=== PATIENT | female | born 1935 | race Hispanic/Latino ===

== ENCOUNTER → 2018-06-03 | Outpatient (CLI) | payer MEDICARE | END | disposition home or self-care (01) | LOC: RAH 07:37 | PROVIDERS: ATTEND Internal Medicine Nephrology | DX: R10.9 Unspecified abdominal pain (principal); R10.2 Pelvic and perineal pain | CPT/HCPCS: 74176 ==

== ENCOUNTER 2018-06-15 09:45 | Emergency (ER) | payer MEDICARE ==
[2018-06-15] MEDS ORDERED: SODIUM CHLORIDE 0.9% 1000ML 1,000 ML IV ONE (10:47)
[2018-06-15] MEDS ORDERED: ONDANSETRON HCL 4 MG/2 ML VIAL ONE (10:47)
[2018-06-15 10:58] LABS: BASOPHILS % (AUTO) 0.9 % (0.0-5.0); EOSINOPHILS % (AUTO) 3.6 % (0.0-8.0); HEMATOCRIT 32.7 % (36-48); LYMPHOCYTES % (AUTO) 19.9 % (21.0-51.0); MEAN CORPUSCULAR HEMOGLOBIN 26.3 pg (27.0-33.0); MEAN CORPUSCULAR HGB CONC 33.4 g/dL (32.0-36.0); MEAN CORPUSCULAR VOLUME 78.9 fL (79-99); MONOCYTES % (AUTO) 6.9 % (3.0-13.0); NEUTROPHILS % (AUTO) 68.7 % (40.0-77.0); PLATELET COUNT (AUTO) 233 K/uL (130-400); RED BLOOD CELL COUNT(AUTO) 4.14 MIL/uL (4.00-5.50); RED CELL DISTRIBUTION WIDTH 13.3 % (11.0-15.5); WHITE BLOOD COUNT (AUTO) 4.8 K/uL (4.8-10.8)
[2018-06-15 11:00] LABS: CREATININE 1.1 mg/dL (0.5-1.5); POTASSIUM 4.6 mmol/L (3.5-5.1)
[2018-06-15 11:06] LABS: ALBUMIN 3.6 g/dL (3.5-5.0); BILIRUBIN,DIRECT 0.1 mg/dL (0.0-0.3); BILIRUBIN,TOTAL 0.3 mg/dL (0.2-1.0); TOTAL PROTEIN, SERUM 7.6 g/dL (6.0-8.3)
[2018-06-15 11:28] LABS: B-TYPE NATRIURETIC PEPTIDE 103 pg/mL (0-100)
[2018-06-15 11:31] LABS: INR 1.09 (0.85-1.15); PARTIAL THROMBOPLASTIN TIME 24.5 SEC (26.3-35.5); PROTHROMBIN TIME 11.4 SEC (9.6-11.6)
[2018-06-15] MEDS ORDERED: METOPROLOL TARTRATE 50 MG TAB ONE (12:40)
== END 2018-06-15 14:13 | disposition home or self-care (01) ==
LOC: EDH 09:45
DX: E86.0 Dehydration (principal); R55 Syncope and collapse; I10 Essential (primary) hypertension; Z88.6 Allergy status to analgesic agent
CPT/HCPCS: 36415; 70450; 80048; 80076; 82550; 83880; 84484; 85025; 85610; 85730; 93005; 96361; 96374; 99284; J2405; J7030

== ENCOUNTER 2019-06-07 21:37 | Emergency (ER) | payer MEDICARE ==
[2019-06-07 21:59] LABS: BASOPHILS % (AUTO) 1.2 % (0.0-5.0); EOSINOPHILS % (AUTO) 4.4 % (0.0-8.0); HEMATOCRIT 33.5 % (36-48); LYMPHOCYTES % (AUTO) 41.9 % (21.0-51.0); MEAN CORPUSCULAR HEMOGLOBIN 25.5 pg (27.0-33.0); MEAN CORPUSCULAR HGB CONC 31.9 g/dL (32.0-36.0); MEAN CORPUSCULAR VOLUME 79.8 fL (79-99); MONOCYTES % (AUTO) 10.4 % (3.0-13.0); NEUTROPHILS % (AUTO) 41.6 % (40.0-77.0); PLATELET COUNT (AUTO) 216 K/uL (130-400); WHITE BLOOD COUNT (AUTO) 4.3 K/uL (4.8-10.8)
[2019-06-07 22:18] LABS: CREATININE 1.3 mg/dL (0.5-1.5); POTASSIUM 3.6 mmol/L (3.5-5.1)
[2019-06-07 22:22] LABS: ALBUMIN 4.1 g/dL (3.5-5.0); BILIRUBIN,TOTAL 0.3 mg/dL (0.2-1.0); TOTAL PROTEIN, SERUM 7.7 g/dL (6.0-8.3)
[2019-06-07 22:50] LABS: APPEARANCE,URINE SLIGHTLY CLOUDY (CLEAR); BILIRUBIN,URINE NEGATIVE (NEGATIVE); COLOR,URINE YELLOW (YELLOW); GLUCOSE, URINE (UA) NEGATIVE (NEGATIVE); KETONES,URINE NEGATIVE (NEGATIVE); OCCULT BLOOD,URINE LARGE (NEGATIVE); PROTEIN,URINE 100 mg/dL (NEGATIVE); UROBILINOGEN,URINE 0.2 mg/dL (0.2-1.0)
[2019-06-07 22:51] LABS: LEUKOCYTE ESTERASE ,URINE TRACE (NEGATIVE); NITRATE,URINE NEGATIVE (NEGATIVE)
[2019-06-07 22:52] LABS: BACTERIA,URINE None Seen /HPF (None Seen); RBC,URINE 26-50 /HPF (0-1)
[2019-06-07 22:53] LABS: SQUAMOUS EPITHELIAL CELL,UR Rare /HPF (0-2)
[2019-06-07] MEDS ORDERED: KETOROLAC TROMETHAMINE 15MG/ML ONE (23:31)
[2019-06-07] MEDS ORDERED: TAMSULOSIN HCL 0.4 MG CAP.ER.24H ONE (23:31)
[2019-06-07] MEDS ORDERED: SODIUM CHLORIDE 0.9% 1000ML 1,000 ML IV ONE (23:32)
== END 2019-06-08 02:55 | disposition home or self-care (01) ==
LOC: EDH 21:37
DX: N20.1 Calculus of ureter (principal); I10 Essential (primary) hypertension; R11.2 Nausea with vomiting, unspecified; Z88.5 Allergy status to narcotic agent; Z90.49 Acquired absence of other specified parts of digestive tract; Z90.710 Acquired absence of both cervix and uterus
CPT/HCPCS: 36415; 71045; 74176; 80053; 81001; 82150; 82550; 83605; 83690; 84484; 85025; 87040 ×2; 93005; 96361; 96374; 99285; J1885; J7030

== ENCOUNTER 2019-11-19 09:45 | Emergency (ER) | payer MEDICARE ==
[2019-11-19] MEDS ORDERED: TETANUS/DIPHTHERIA TOXOID [ADULT] 0.5 ML VIAL IM ONE (11:00)
== END 2019-11-19 11:27 | disposition home or self-care (01) ==
LOC: EDH 09:45
DX: S00.03XA Contusion of scalp, initial encounter (principal); S00.12XA Contusion of left eyelid and periocular area, initial encounter; I10 Essential (primary) hypertension; Z88.6 Allergy status to analgesic agent; Z90.49 Acquired absence of other specified parts of digestive tract; Z90.710 Acquired absence of both cervix and uterus; W06.XXXA Fall from bed, initial encounter; Y93.89 Activity, other specified; Y92.89 Other specified places as the place of occurrence of the external cause; Y99.8 Other external cause status

== ENCOUNTER 2020-05-18 01:49 | Observation (INO) | payer MEDICARE ==
[~2020-05-18] VITALS: Ht 157.5 cm; Wt 68.9 kg
[2020-05-18 02:19] LABS: BASOPHILS % (AUTO) 0.7 % (0.0-5.0); EOSINOPHILS % (AUTO) 3.8 % (0.0-8.0); LYMPHOCYTES % (AUTO) 40.2 % (21.0-51.0); MEAN CORPUSCULAR HEMOGLOBIN 25.9 pg (27.0-33.0); MEAN CORPUSCULAR HGB CONC 31.5 g/dL (32.0-36.0); MEAN CORPUSCULAR VOLUME 82.3 fL (79-99); MONOCYTES % (AUTO) 11.3 % (3.0-13.0); NEUTROPHILS % (AUTO) 43.6 % (40.0-77.0); PLATELET COUNT (AUTO) 205 K/uL (130-400); RED BLOOD CELL COUNT(AUTO) 4.13 MIL/uL (4.00-5.50); RED CELL DISTRIBUTION WIDTH 13.1 % (11.0-15.5); WHITE BLOOD COUNT (AUTO) 4.5 K/uL (4.8-10.8)
[2020-05-18 02:29] LABS: CREATININE 1.5 mg/dL (0.5-1.5)
[2020-05-18] MEDS ORDERED: MORPHINE SULFATE 2 MG/ML 1ML SYG ONE ×2 (02:30→03:48)
[2020-05-18] MEDS ORDERED: ONDANSETRON HCL 4 MG/2 ML VIAL ONE ×3 (02:30→09:38)
[2020-05-18 02:34] LABS: ALBUMIN 3.6 g/dL (3.5-5.0); BILIRUBIN,TOTAL 0.3 mg/dL (0.2-1.0); TOTAL PROTEIN, SERUM 7.1 g/dL (6.0-8.3)
[2020-05-18 03:38] LABS: APPEARANCE,URINE Clear (CLEAR); BILIRUBIN,URINE Negative (NEGATIVE); COLOR,URINE Yellow (YELLOW); GLUCOSE, URINE (UA) Negative (NEGATIVE); KETONES,URINE Negative (NEGATIVE); LEUKOCYTE ESTERASE ,URINE Negative (NEGATIVE); NITRATE,URINE Negative (NEGATIVE); OCCULT BLOOD,URINE Moderate (NEGATIVE); PROTEIN,URINE POS 2+ mg/dL (NEGATIVE); UROBILINOGEN,URINE 0.2 mg/dL (0.2-1.0)
[2020-05-18 03:51] LABS: BACTERIA,URINE None Seen /HPF (None Seen); RBC,URINE 26-50 /HPF (0-1); SQUAMOUS EPITHELIAL CELL,UR Rare /HPF (0-2); WBC,URINE None Seen /HPF (0-1)
[2020-05-18] MEDS ORDERED: CEFTRIAXONE SODIUM 1 GM ONE (04:54)
[2020-05-18] MEDS ORDERED: MORPHINE SULFATE 4 MG/1ML SYG ONE (05:45)
[2020-05-18] MEDS: CEFTRIAXONE SODIUM 1 GM IV SCH (06:30)
[2020-05-18] MEDS ORDERED: DiphenhydrAMINE HCL 50 MG/ML VIAL IV PRN (06:30)
[2020-05-18] MEDS ORDERED: LACTULOSE 20 GM/30 ML UDCUP PO PRN (06:30)
[2020-05-18] MEDS ORDERED: MAG HYDROX/AL HYDROX/SIMETH ES 30 ML SUSP UDCUP PO PRN (06:30)
[2020-05-18] MEDS ORDERED: ONDANSETRON HCL 4 MG/2 ML VIAL IV PRN (06:30)
[2020-05-18] MEDS ORDERED: MORPHINE SULFATE 2 MG/ML 1ML SYG IV PRN (06:30)
[2020-05-18] MEDS ORDERED: ACETAMINOPHEN 325 MG TAB PO PRN (06:30)
[2020-05-18] MEDS ORDERED: METOPROLOL TARTRATE 50 MG TAB ONE (06:40)
[2020-05-18 07:12] LABS: HEMOGLOBIN A1C 6.3 % (4.0-6.0)
[2020-05-18] MEDS ORDERED: TAMSULOSIN HCL 0.4 MG CAP.ER.24H ONE (07:43)
[2020-05-18] MEDS ORDERED: FAMOTIDINE 20MG TAB 20 MG TAB ONE (07:43)
[2020-05-18] MEDS: FAMOTIDINE 20MG TAB 20 MG TAB PO SCH (09:00)
[2020-05-18] MEDS: TAMSULOSIN HCL 0.4 MG CAP.ER.24H PO SCH (09:00)
[2020-05-18] MEDS ORDERED: KETOROLAC TROMETHAMINE 30MG/ML ONE (09:39)
[2020-05-18] MEDS ORDERED: METOPROLOL TARTRATE 1 MG/ML 5ML VIAL IV ONE (09:51)
[2020-05-18 15:15] VITALS: BP 136/53
--- NOTE | 2020-05-18 15:20 | NUR ---
HX OF IBS Addendum: 05/18/20 at 1553 by ESTEPHANIA REYNOSO RN RN Amended: Links added.
[2020-05-18] MEDS ORDERED: METOPROLOL TARTRATE 1 MG/ML 5ML VIAL IV PRN (17:00)
[2020-05-18 19:38] VITALS: BP 127/59
[2020-05-18] MEDS: SODIUM CHLORIDE 0.9% 1000ML 1,000 ML IV SCH (19:50)
[2020-05-19] VITALS (7 sets, daily range): BP systolic 128–170; BP diastolic 64–91
[2020-05-19] MEDS: CEFTRIAXONE SODIUM 1 GM IV SCH (05:21)
[2020-05-19 05:56] LABS: BASOPHILS % (AUTO) 0.5 % (0.0-5.0); EOSINOPHILS % (AUTO) 1.6 % (0.0-8.0); HEMATOCRIT 29.6 % (36-48); LYMPHOCYTES % (AUTO) 23.2 % (21.0-51.0); MEAN CORPUSCULAR HEMOGLOBIN 26.1 pg (27.0-33.0); MEAN CORPUSCULAR HGB CONC 31.4 g/dL (32.0-36.0); MEAN CORPUSCULAR VOLUME 82.9 fL (79-99); MONOCYTES % (AUTO) 10.4 % (3.0-13.0); PLATELET COUNT (AUTO) 175 K/uL (130-400); RED BLOOD CELL COUNT(AUTO) 3.57 MIL/uL (4.00-5.50); RED CELL DISTRIBUTION WIDTH 13.2 % (11.0-15.5); WHITE BLOOD COUNT (AUTO) 5.8 K/uL (4.8-10.8)
[2020-05-19 06:19] LABS: BILIRUBIN,TOTAL 0.3 mg/dL (0.2-1.0); CREATININE 2.8 mg/dL (0.5-1.5); POTASSIUM 4.4 mmol/L (3.5-5.1); TOTAL PROTEIN, SERUM 6.3 g/dL (6.0-8.3)
[2020-05-19] MEDS: TAMSULOSIN HCL 0.4 MG CAP.ER.24H PO SCH (09:00)
[2020-05-19] MEDS: FAMOTIDINE 20MG TAB 20 MG TAB PO SCH (09:00)
[2020-05-19] MEDS: SODIUM CHLORIDE 0.9% 1000ML 1,000 ML IV SCH (09:50)
--- NOTE | 2020-05-19 10:30 | NUR ---
ET WITH PATIENT AT BEDSIDE FOR DC GAIL. PATIENTS STATES SHE IS ACTIVE AND INDEPENDNET, SUES NO DME, AND HAS NO HOME SERIVCES LIVES WITH SPOUSE LIZBETH, WHO WILL PORVIDE TRANSPORT, DCP HOME. Addendum: 05/19/20 at 1738 by AZALEA LAWRENCE RN CM Amended: Links added.
--- NOTE | 2020-05-19 13:34 | NUR ---
DR ALBARRAN VISITED WITH PATIENT. POC DISCUSSED. BMP AND CT ABD/PELVIS ORDERED STAT. WILL REPORT BACK RESULTS TO DR ALBARRAN. WILL CONTINUE TO MONITOR CLOSELY.
[2020-05-19 14:04] LABS: CREATININE 2.3 mg/dL (0.5-1.5); POTASSIUM 4.3 mmol/L (3.5-5.1)
--- NOTE | 2020-05-19 17:45 | NUR ---
DR PRICE CALLED BACK ORDERED TO STOP IVF DUE TO BP INCREASE. EXPLAINED THIS TO THE PATIENT, BUT SHE SEEMS FORGETFUL. NEED FOR CONSTANT REINFORCEMENT OF EDUCATION GIVEN.
[2020-05-19] MEDS ORDERED: METOPROLOL TARTRATE 50 MG TAB PO STA (19:29)
[2020-05-19] MEDS ORDERED: LOSARTAN 50 MG TABLET PO STA (19:29)
[2020-05-20 00:21] VITALS: BP 158/66
[2020-05-20 03:56] VITALS: BP 158/61
[2020-05-20 04:14] LABS: APPEARANCE,URINE Clear (CLEAR); BILIRUBIN,URINE Negative (NEGATIVE); COLOR,URINE Yellow (YELLOW); GLUCOSE, URINE (UA) Negative (NEGATIVE); KETONES,URINE Negative (NEGATIVE); LEUKOCYTE ESTERASE ,URINE Negative (NEGATIVE); NITRATE,URINE Negative (NEGATIVE); OCCULT BLOOD,URINE Trace (NEGATIVE); PROTEIN,URINE Negative (NEGATIVE); UROBILINOGEN,URINE 0.2 mg/dL (0.2-1.0)
[2020-05-20 04:25] LABS: RBC,URINE 0-1 /HPF (0-1); WBC,URINE None Seen /HPF (0-1)
[2020-05-20 04:26] LABS: BACTERIA,URINE None Seen /HPF (None Seen); SQUAMOUS EPITHELIAL CELL,UR Rare /HPF (0-2)
[2020-05-20] MEDS: CEFTRIAXONE SODIUM 1 GM IV SCH (05:21)
[2020-05-20 05:49] LABS: BASOPHILS % (AUTO) 1.4 % (0.0-5.0); EOSINOPHILS % (AUTO) 4.3 % (0.0-8.0); HEMATOCRIT 31.2 % (36-48); LYMPHOCYTES % (AUTO) 36.2 % (21.0-51.0); MEAN CORPUSCULAR HEMOGLOBIN 26.2 pg (27.0-33.0); MEAN CORPUSCULAR HGB CONC 32.4 g/dL (32.0-36.0); MONOCYTES % (AUTO) 9.7 % (3.0-13.0); NEUTROPHILS % (AUTO) 47.9 % (40.0-77.0); PLATELET COUNT (AUTO) 201 K/uL (130-400); RED BLOOD CELL COUNT(AUTO) 3.85 MIL/uL (4.00-5.50); RED CELL DISTRIBUTION WIDTH 12.8 % (11.0-15.5); WHITE BLOOD COUNT (AUTO) 4.2 K/uL (4.8-10.8)
[2020-05-20 06:39] LABS: ALBUMIN 3.1 g/dL (3.5-5.0); BILIRUBIN,TOTAL 0.3 mg/dL (0.2-1.0); CREATININE 1.5 mg/dL (0.5-1.5); MAGNESIUM 1.4 mg/dL (1.80-2.40); PHOSPHORUS 3.6 mg/dL (2.5-4.9); POTASSIUM 4.2 mmol/L (3.5-5.1); TOTAL PROTEIN, SERUM 6.7 g/dL (6.0-8.3); URIC ACID 8.2 mg/dL (2.6-7.2)
[2020-05-20 07:57] VITALS: BP 160/57
[2020-05-20] MEDS ORDERED: METOPROLOL TARTRATE 50 MG TAB PO SCH (09:00)
[2020-05-20] MEDS ORDERED: Vitamin B Complex/Vit C/Folic Acid PO SCH (09:00)
[2020-05-20] MEDS ORDERED: LOSARTAN 50 MG TABLET PO SCH (09:00)
[2020-05-20] MEDS: FAMOTIDINE 20MG TAB 20 MG TAB PO SCH (09:09)
[2020-05-20] MEDS: TAMSULOSIN HCL 0.4 MG CAP.ER.24H PO SCH (09:09)
[2020-05-20 11:13] VITALS: BP 155/56
--- NOTE | 2020-05-20 13:50 | NUR ---
DR PRICE ROUNDED DR PRICE ROUNDED ON PATIENT ORDERS RECEIVED IF PATIENT IS DISCHARGE HAVE HER FOLLOW-UP IN HIS OFFICE IN 1-2 WEEKS REPLACE MAG BEFORE DISCHARGE, IF PATIENT IS NOT DISCHARGE MORNING LABS CBC, BMP, MAG, PHOS. ORDERS PLACED
[2020-05-20] MEDS ORDERED: MAGNESIUM 2GM PREMIX 50ML 50 ML IV SCH (14:00)
[2020-05-20 16:24] VITALS: BP 157/64
--- NOTE | 2020-05-20 18:16 | NUR ---
DISCHARGE PATIENT GIVEN DISCHARGE INSTRUCTIONS AND EDUCATION ON FOLLOW UP APPOINTMENTS, AND EXIT CARE ON HOW TO PREVENT KIDNEY STONES. PATIENT VERBALIZED UNDERSTANDING OF ALL EDUCATION GIVEN VIA TEACH BACK. NO DISTRESS NOTED UPON DISCHARGE. IV DISCONTINUED ,CATHETER INTACT. PATIENT CALLED HER DAUGHTER AND WAITING ON HER TO BRING HER CLOTHES.
== END 2020-05-20 18:49 | disposition home or self-care (01) ==
LOC: EDH 01:49 → EDHIP 06:19 → 3BH 15:16
PROVIDERS: ADMIT Internal Medicine Critical Care Medicine; ATTEND Internal Medicine Critical Care Medicine
DX: N13.2 Hydronephrosis with renal and ureteral calculous obstruction (principal); Z20.828 Contact with and (suspected) exposure to other viral communicable diseases; I12.9 Hypertensive chronic kidney disease with stage 1 through stage 4 chronic kidney disease, or unspecified chronic kidney disease; N18.9 Chronic kidney disease, unspecified; N17.9 Acute kidney failure, unspecified; K58.9 Irritable bowel syndrome, unspecified; E78.5 Hyperlipidemia, unspecified; E83.42 Hypomagnesemia; D64.9 Anemia, unspecified; Z87.442 Personal history of urinary calculi; Z90.49 Acquired absence of other specified parts of digestive tract; Z90.710 Acquired absence of both cervix and uterus; Z79.899 Other long term (current) drug therapy; Z88.5 Allergy status to narcotic agent
CPT/HCPCS: 36415 ×3; 71045; 74176 ×2; 80053 ×3; 81001 ×2; 82948; 83036; 83735 ×2; 84100; 84484; 84550; 85025 ×3; 87040; 87426; 93005; 96361 ×3; 96365; 96366; 96375; 96376; 99285; G0378 ×61; J0696 ×3; J1885; J2270; J2405 ×3; J3475; J3490; U0003; 80048

== ENCOUNTER 2020-09-10 15:37 | Inpatient (IN) | payer MEDICARE ==
[~2020-09-10] VITALS: Ht 157.5 cm; Wt 63.5 kg
[2020-09-10] MEDS ORDERED: IOHEXOL-350 75 ML VIAL IV ONE (15:59)
[2020-09-10] MEDS ORDERED: ONDANSETRON 4MG INJ ONE ×2 (16:06→21:53)
[2020-09-10 16:11] LABS: BASOPHILS % (AUTO) 0.8 % (0.0-5.0); EOSINOPHILS % (AUTO) 2.2 % (0.0-8.0); HEMATOCRIT 37.9 % (36-48); LYMPHOCYTES % (AUTO) 19.8 % (21.0-51.0); MEAN CORPUSCULAR HEMOGLOBIN 26.1 pg (27.0-33.0); MEAN CORPUSCULAR HGB CONC 32.2 g/dL (32.0-36.0); MONOCYTES % (AUTO) 6.7 % (3.0-13.0); NEUTROPHILS % (AUTO) 69.7 % (40.0-77.0); PLATELET COUNT (AUTO) 306 K/uL (130-400); RED BLOOD CELL COUNT(AUTO) 4.68 MIL/uL (4.00-5.50); RED CELL DISTRIBUTION WIDTH 12.9 % (11.0-15.5)
[2020-09-10 16:26] LABS: CREATININE 1.6 mg/dL (0.5-1.5); POTASSIUM 4.2 mmol/L (3.5-5.1)
[2020-09-10 16:27] LABS: INR 1.14 (0.85-1.15); PROTHROMBIN TIME 12.3 SEC (9.6-11.6)
[2020-09-10 16:31] LABS: ALBUMIN 4.6 g/dL (3.5-5.0); BILIRUBIN,TOTAL 0.5 mg/dL (0.2-1.0); TOTAL PROTEIN, SERUM 8.9 g/dL (6.0-8.3)
[2020-09-10 16:40] LABS: B-TYPE NATRIURETIC PEPTIDE 45 pg/mL (0-100)
[2020-09-10] MEDS ORDERED: MORPHINE 4 MG SYG ONE (17:51)
[2020-09-10] MEDS ORDERED: LACTULOSE 20 GM/30 ML UDCUP PO PRN (20:45)
[2020-09-10] MEDS ORDERED: NITROGLYCERIN 0.4 MG SL TAB SL PRN (20:45)
[2020-09-10] MEDS ORDERED: GUAIFENESIN-DM 200/20 MG 10 ML PO PRN (20:45)
[2020-09-10] MEDS ORDERED: ACETAMINOPHEN 325 MG TAB PO PRN ×2 (20:45)
[2020-09-10] MEDS ORDERED: DiphenhydrAMINE HCL 50 MG/ML VIAL IV PRN (20:45)
[2020-09-10] MEDS ORDERED: LABETALOL 20MG SYG IV PRN (20:45)
[2020-09-10 20:56] LABS: MAGNESIUM 1.7 mg/dL (1.80-2.40)
[2020-09-10] MEDS ORDERED: LABETALOL 20MG SYG IV ONE (21:43)
[2020-09-10 22:20] VITALS: BP 166/76
[2020-09-11] MEDS: MORPHINE 2 MG SYG IVP PRN ×2 (00:23→04:44)
[2020-09-11] MEDS: ONDANSETRON 4MG INJ IV PRN ×2 (00:24→20:11)
[2020-09-11 01:43] VITALS: BP 168/81
[2020-09-11] MEDS: LACTATED RINGERS 1000ML 1,000 ML IV SCH ×3 (01:49→20:07)
[2020-09-11] MEDS: MAGNESIUM 2GM PREMIX 50ML 50 ML IV PRN (01:58)
[2020-09-11 04:18] LABS: MEAN CORPUSCULAR HEMOGLOBIN 25.9 pg (27.0-33.0); MEAN CORPUSCULAR HGB CONC 32.5 g/dL (32.0-36.0); MEAN CORPUSCULAR VOLUME 79.8 fL (79-99); RED BLOOD CELL COUNT(AUTO) 4.51 MIL/uL (4.00-5.50); RED CELL DISTRIBUTION WIDTH 12.8 % (11.0-15.5); WHITE BLOOD COUNT (AUTO) 8.6 K/uL (4.8-10.8)
[2020-09-11 04:24] LABS: CREATININE 1.8 mg/dL (0.5-1.5); POTASSIUM 4.3 mmol/L (3.5-5.1)
[2020-09-11 05:01] VITALS: BP 134/66
[2020-09-11 06:21] LABS: MAGNESIUM 2.8 mg/dL (1.80-2.40)
[2020-09-11 07:30] VITALS: BP 137/64
[2020-09-11] MEDS: FAMOTIDINE 20MG VIAL IV SCH (08:23)
[2020-09-11] MEDS: ENOXAPARIN SODIUM 40 MG/0.4 ML SYRINGE SQ SCH (08:23)
[2020-09-11] MEDS ORDERED: METO50TA18 PO (08:33)
[2020-09-11] MEDS ORDERED: LOSA1TAB42 PO (08:33)
[2020-09-11 11:00] VITALS: BP 174/80
[2020-09-11] MEDS: LABETALOL 20MG VIAL IV PRN (14:06)
[2020-09-11 16:00] VITALS: BP 148/65
[2020-09-11 19:45] VITALS: BP 150/79
[2020-09-11] MEDS: METOPROLOL TARTRATE 50 MG TAB PO SCH (20:11)
[2020-09-12] VITALS (26 sets, daily range): BP systolic 109–202; BP diastolic 48–90
[2020-09-12] MEDS: MORPHINE 2 MG SYG IVP PRN (00:49)
[2020-09-12 06:03] LABS: BASOPHILS % (AUTO) 0.7 % (0.0-5.0); EOSINOPHILS % (AUTO) 1.7 % (0.0-8.0); HEMATOCRIT 35.3 % (36-48); LYMPHOCYTES % (AUTO) 15.5 % (21.0-51.0); MEAN CORPUSCULAR HEMOGLOBIN 25.7 pg (27.0-33.0); MEAN CORPUSCULAR VOLUME 80.4 fL (79-99); MONOCYTES % (AUTO) 10.2 % (3.0-13.0); NEUTROPHILS % (AUTO) 71.6 % (40.0-77.0); PLATELET COUNT (AUTO) 303 K/uL (130-400); RED BLOOD CELL COUNT(AUTO) 4.39 MIL/uL (4.00-5.50); RED CELL DISTRIBUTION WIDTH 12.7 % (11.0-15.5); WHITE BLOOD COUNT (AUTO) 7.3 K/uL (4.8-10.8)
[2020-09-12 06:16] LABS: ALBUMIN 3.8 g/dL (3.5-5.0); BILIRUBIN,TOTAL 0.7 mg/dL (0.2-1.0); CREATININE 2.5 mg/dL (0.5-1.5); MAGNESIUM 2.4 mg/dL (1.80-2.40); POTASSIUM 4.2 mmol/L (3.5-5.1); TOTAL PROTEIN, SERUM 7.8 g/dL (6.0-8.3)
[2020-09-12] MEDS: LOSARTAN 100 MG TABLET PO SCH (09:47)
[2020-09-12] MEDS: HYDROCHLOROTHIAZIDE 25 MG TABLET PO SCH (09:48)
[2020-09-12] MEDS: ENOXAPARIN SODIUM 40 MG/0.4 ML SYRINGE SQ SCH (09:51)
[2020-09-12] MEDS: FAMOTIDINE 20MG VIAL IV SCH (09:58)
[2020-09-12] MEDS ORDERED: CLOP75TA14 PO (09:59)
[2020-09-12] MEDS ORDERED: LACTATED RINGERS 1000ML 1,000 ML IV SCH (12:00)
[2020-09-12] MEDS: CEFAZOLIN SODIUM 1 GM VIAL IVP SCH ×2 (14:27→23:17)
[2020-09-12] MEDS ORDERED: SUCCINYLCHOLINE CHLORIDE 20 MG/ML 10 ML VIAL ONE (15:17)
[2020-09-12] MEDS ORDERED: PROPOFOL 10 MG/ML 20ML VIAL IV ONE (15:18)
[2020-09-12] MEDS ORDERED: ROCURONIUM 10MG/1ML SYR 10 MG/ML ML ONE (15:18)
[2020-09-12] MEDS ORDERED: MIDAZOLAM HCL 1 MG/ML 2ML VIAL ONE (15:18)
[2020-09-12] MEDS ORDERED: CEFAZOLIN SODIUM 1 GM VIAL ONE (15:29)
[2020-09-12] MEDS ORDERED: INSULIN HUMULIN R 100 UNIT/ML 3ML SQ PRN (15:30)
[2020-09-12] MEDS: 0.9%NACL 1000ML 1,000 ML IV SCH (15:30)
[2020-09-12] MEDS ORDERED: MORPHINE 4 MG SYG IV PRN (15:30)
[2020-09-12] MEDS ORDERED: ACETAMINOPHEN 325 MG TAB PO PRN (15:30)
[2020-09-12] MEDS ORDERED: ONDANSETRON 4MG INJ IVP PRN (15:30)
[2020-09-12] MEDS ORDERED: FENTANYL CITRATE PF 50 MCG/1 ML 2ML VIAL ONE (15:36)
[2020-09-12] MEDS ORDERED: ONDANSETRON 4MG INJ ONE (15:42)
[2020-09-12] MEDS ORDERED: DEXAMETHASONE SOD PHOSPHATE 10MG/ML 1ML VIAL ONE (15:42)
[2020-09-12] MEDS ORDERED: PHENYLEPHRINE HCL 10 MG/ML 1ML VIAL IV ONE (16:01)
[2020-09-12] MEDS ORDERED: BUPIVACAINE/PF 0.25% 30ML VIAL IJ ONE (16:15)
[2020-09-12] MEDS ORDERED: NEOSTIGMINE 5MG/5ML SYR IV ONE (16:18)
[2020-09-12] MEDS ORDERED: GLYCOPYRROLATE 1 MG/5 ML SYRINGE ONE (16:18)
[2020-09-12] MEDS ORDERED: LABETALOL 20MG VIAL IV ONE (16:45)
[2020-09-12] MEDS ORDERED: KETOROLAC 15MG/ML VIAL (15MG/ML) ONE (16:46)
[2020-09-12] MEDS ORDERED: MEPERIDINE-PF 25 MG/ML SYG ONE ×2 (16:54→17:05)
[2020-09-12] MEDS: METOPROLOL TARTRATE 50 MG TAB PO SCH (20:10)
[2020-09-12] MEDS ORDERED: FAMOTIDINE 20MG VIAL IV SCH (21:00)
[2020-09-13 03:35] VITALS: BP 125/59
[2020-09-13] MEDS: 0.9%NACL 1000ML 1,000 ML IV SCH ×2 (04:32→18:21)
[2020-09-13] MEDS: MAG/ALUM/SIMETH 30 ML UDCUP PO PRN (04:34)
[2020-09-13 05:41] LABS: BASOPHILS % (AUTO) 0.5 % (0.0-5.0); EOSINOPHILS % (AUTO) 0.1 % (0.0-8.0); MEAN CORPUSCULAR HEMOGLOBIN 26.1 pg (27.0-33.0); MEAN CORPUSCULAR HGB CONC 31.7 g/dL (32.0-36.0); MEAN CORPUSCULAR VOLUME 82.4 fL (79-99); MONOCYTES % (AUTO) 9.2 % (3.0-13.0); NEUTROPHILS % (AUTO) 81.8 % (40.0-77.0); PLATELET COUNT (AUTO) 246 K/uL (130-400); RED BLOOD CELL COUNT(AUTO) 3.64 MIL/uL (4.00-5.50); RED CELL DISTRIBUTION WIDTH 13.3 % (11.0-15.5); WHITE BLOOD COUNT (AUTO) 8.2 K/uL (4.8-10.8)
[2020-09-13 06:10] LABS: BILIRUBIN,TOTAL 0.6 mg/dL (0.2-1.0); CREATININE 4.3 mg/dL (0.5-1.5); POTASSIUM 4.6 mmol/L (3.5-5.1); TOTAL PROTEIN, SERUM 6.7 g/dL (6.0-8.3)
[2020-09-13 08:48] VITALS: BP 122/57
[2020-09-13] MEDS: LOSARTAN 100 MG TABLET PO SCH (10:16)
[2020-09-13] MEDS: FAMOTIDINE 20MG VIAL IV SCH (10:16)
[2020-09-13] MEDS: HYDROCHLOROTHIAZIDE 25 MG TABLET PO SCH (10:17)
[2020-09-13] MEDS: ENOXAPARIN SODIUM 40 MG/0.4 ML SYRINGE SQ SCH (10:18)
[2020-09-13 10:50] VITALS: BP 135/58
[2020-09-13] MEDS: ONDANSETRON 4MG INJ IV PRN ×2 (12:04→23:16)
[2020-09-13] MEDS ORDERED: TRAMADOL HCL 50 MG TABLET PO PRN (12:15)
[2020-09-13] MEDS: CEFAZOLIN SODIUM 1 GM VIAL IVP SCH ×2 (12:19→23:16)
[2020-09-13] MEDS ORDERED: ACET1TAB25 PO (14:42)
[2020-09-13] MEDS ORDERED: BISACODYL 10 MG SUPP.RECT RC SCH (15:45)
[2020-09-13] MEDS: MORPHINE 2 MG SYG IVP PRN (15:55)
[2020-09-13 16:00] VITALS: BP 160/74
[2020-09-13] MEDS: METOCLOPRAMIDE 10 MG/2 ML VIAL IVP SCH (17:08)
[2020-09-13] MEDS: SIMETHICONE 80 MG TAB.CHEW PO PRN (18:28)
[2020-09-13 19:52] VITALS: BP 152/78
[2020-09-13] MEDS: METOPROLOL TARTRATE 50 MG TAB PO SCH (21:11)
[2020-09-13 23:30] VITALS: BP 158/85
[2020-09-14] VITALS (9 sets, daily range): BP systolic 134–186; BP diastolic 47–83
[2020-09-14] MEDS: MAG/ALUM/SIMETH 30 ML UDCUP PO PRN ×2 (00:43→21:44)
[2020-09-14] MEDS: DIPHENHYDRAMINE HCL 25 MG CAPSULE PO PRN (04:02)
[2020-09-14 04:55] LABS: BASOPHILS % (AUTO) 0.4 % (0.0-5.0); EOSINOPHILS % (AUTO) 1.8 % (0.0-8.0); HEMATOCRIT 30.3 % (36-48); LYMPHOCYTES % (AUTO) 14.3 % (21.0-51.0); MEAN CORPUSCULAR HEMOGLOBIN 26.4 pg (27.0-33.0); MEAN CORPUSCULAR HGB CONC 32.3 g/dL (32.0-36.0); MEAN CORPUSCULAR VOLUME 81.7 fL (79-99); MONOCYTES % (AUTO) 11.5 % (3.0-13.0); NEUTROPHILS % (AUTO) 71.6 % (40.0-77.0); PLATELET COUNT (AUTO) 263 K/uL (130-400); RED BLOOD CELL COUNT(AUTO) 3.71 MIL/uL (4.00-5.50); RED CELL DISTRIBUTION WIDTH 12.9 % (11.0-15.5); WHITE BLOOD COUNT (AUTO) 5.1 K/uL (4.8-10.8)
[2020-09-14 05:16] LABS: ALBUMIN 3.1 g/dL (3.5-5.0); BILIRUBIN,TOTAL 0.5 mg/dL (0.2-1.0); CREATININE 2.4 mg/dL (0.5-1.5); POTASSIUM 3.8 mmol/L (3.5-5.1); TOTAL PROTEIN, SERUM 7.5 g/dL (6.0-8.3)
[2020-09-14] MEDS: 0.9%NACL 1000ML 1,000 ML IV SCH ×2 (06:41→20:50)
[2020-09-14] MEDS: METOCLOPRAMIDE 10 MG/2 ML VIAL IVP SCH ×3 (06:41→16:02)
[2020-09-14] MEDS ORDERED: BISACODYL 10 MG SUPP.RECT RC SCH (08:30)
[2020-09-14] MEDS: LOSARTAN 100 MG TABLET PO SCH (09:18)
[2020-09-14] MEDS: FAMOTIDINE 20MG VIAL IV SCH (09:18)
[2020-09-14] MEDS: HYDROCHLOROTHIAZIDE 25 MG TABLET PO SCH (09:18)
[2020-09-14] MEDS: ONDANSETRON 4MG INJ IV PRN ×2 (09:18→21:09)
[2020-09-14] MEDS: SIMETHICONE 80 MG TAB.CHEW PO PRN ×2 (09:19→17:24)
[2020-09-14] MEDS: ENOXAPARIN SODIUM 40 MG/0.4 ML SYRINGE SQ SCH (09:20)
[2020-09-14] MEDS: CEFAZOLIN SODIUM 1 GM VIAL IVP SCH (11:31)
[2020-09-14] MEDS: LABETALOL 20MG VIAL IV PRN ×2 (16:22→21:41)
[2020-09-14] MEDS: METOPROLOL TARTRATE 50 MG TAB PO SCH (20:59)
[2020-09-15] MEDS: CEFAZOLIN SODIUM 1 GM VIAL IVP SCH ×2 (00:09→12:07)
[2020-09-15] MEDS: SIMETHICONE 80 MG TAB.CHEW PO PRN (01:10)
[2020-09-15] MEDS: ONDANSETRON 4MG INJ IV PRN ×2 (02:48→09:57)
[2020-09-15] MEDS ORDERED: POTASSIUM CHLORIDE 20MEQ/100ML 100 ML IV PRN (03:00)
[2020-09-15] MEDS ORDERED: LIDOCAINE HCL-MPF 1% 2ML VIAL IV PRN (03:00)
[2020-09-15 03:56] VITALS: BP 158/71
[2020-09-15 05:17] LABS: BASOPHILS % (AUTO) 0.7 % (0.0-5.0); EOSINOPHILS % (AUTO) 2.4 % (0.0-8.0); HEMATOCRIT 35.4 % (36-48); LYMPHOCYTES % (AUTO) 14.5 % (21.0-51.0); MEAN CORPUSCULAR HEMOGLOBIN 25.2 pg (27.0-33.0); MEAN CORPUSCULAR HGB CONC 31.1 g/dL (32.0-36.0); MEAN CORPUSCULAR VOLUME 81.2 fL (79-99); MONOCYTES % (AUTO) 15.1 % (3.0-13.0); NEUTROPHILS % (AUTO) 66.7 % (40.0-77.0); PLATELET COUNT (AUTO) 311 K/uL (130-400); RED BLOOD CELL COUNT(AUTO) 4.36 MIL/uL (4.00-5.50); RED CELL DISTRIBUTION WIDTH 12.7 % (11.0-15.5); WHITE BLOOD COUNT (AUTO) 5.4 K/uL (4.8-10.8)
[2020-09-15 05:45] LABS: ALBUMIN 3.2 g/dL (3.5-5.0); BILIRUBIN,TOTAL 0.4 mg/dL (0.2-1.0); CREATININE 1.8 mg/dL (0.5-1.5); MAGNESIUM 2.9 mg/dL (1.80-2.40); PHOSPHORUS 3.1 mg/dL (2.5-4.9); POTASSIUM 3.9 mmol/L (3.5-5.1)
[2020-09-15 05:51] LABS: PLATELET MORPHOLOGY PLT CLUMPS PRESENT
[2020-09-15] MEDS ORDERED: INSULIN HUMULIN R 100 UNIT/ML 3ML SQ PRN (06:00)
[2020-09-15] MEDS: METOCLOPRAMIDE 10 MG/2 ML VIAL IVP SCH ×3 (06:40→16:47)
[2020-09-15] MEDS: 0.9%NACL 1000ML 1,000 ML IV SCH ×2 (06:41→22:12)
[2020-09-15 08:00] VITALS: BP 161/86
[2020-09-15] MEDS: LABETALOL 20MG VIAL IV PRN ×2 (08:06→12:09)
[2020-09-15] MEDS: ENOXAPARIN SODIUM 40 MG/0.4 ML SYRINGE SQ SCH (08:07)
[2020-09-15] MEDS: HYDROCHLOROTHIAZIDE 25 MG TABLET PO SCH (08:07)
[2020-09-15] MEDS: FAMOTIDINE 20MG VIAL IV SCH (08:07)
[2020-09-15] MEDS: LOSARTAN 100 MG TABLET PO SCH (08:07)
[2020-09-15 11:24] VITALS: BP 173/78
[2020-09-15] MEDS ORDERED: BENZOCAINE/MENTH/CETYLPYRD CL 1 EACH LOZENGE MM PRN (15:30)
[2020-09-15 16:00] VITALS: BP 136/91
[2020-09-15 20:12] VITALS: BP 124/70
[2020-09-15] MEDS: METOPROLOL TARTRATE 50 MG TAB PO SCH (21:00)
[2020-09-15 21:24] LABS: APPEARANCE,URINE CLEAR (CLEAR); BILIRUBIN,URINE SMALL (NEGATIVE); COLOR,URINE YELLOW (YELLOW); GLUCOSE, URINE (UA) NEGATIVE (NEGATIVE); KETONES,URINE 5 mg/dL (NEGATIVE); LEUKOCYTE ESTERASE ,URINE NEGATIVE (NEGATIVE); NITRATE,URINE NEGATIVE (NEGATIVE); OCCULT BLOOD,URINE NEGATIVE (NEGATIVE); PROTEIN,URINE TRACE mg/dL (NEGATIVE); UROBILINOGEN,URINE 0.2 mg/dL (0.2-1.0)
[2020-09-15 21:27] LABS: CREATININE,URINE RANDOM 116 mg/dL (30-135); POTASSIUM,URINE RANDOM 28 mmol/L (25-125); SODIUM,URINE RANDOM 29 mmol/l (40-220)
[2020-09-15 21:36] LABS: BACTERIA,URINE Rare /HPF (None Seen); MUCUS,URINE Few LPF (None Seen); SQUAMOUS EPITHELIAL CELL,UR Rare /HPF (0-2); WBC,URINE 0-1 /HPF (0-1)
[2020-09-16] VITALS (7 sets, daily range): BP systolic 154–179; BP diastolic 61–97
[2020-09-16] MEDS: CEFAZOLIN SODIUM 1 GM VIAL IVP SCH ×2 (00:07→15:41)
[2020-09-16] MEDS ORDERED: HYDRALAZINE 20MG/ML VIAL IV PRN (00:45)
[2020-09-16 06:09] LABS: HEMATOCRIT 34.2 % (36-48); MEAN CORPUSCULAR HEMOGLOBIN 25.8 pg (27.0-33.0); MEAN CORPUSCULAR HGB CONC 31.9 g/dL (32.0-36.0); RED BLOOD CELL COUNT(AUTO) 4.22 MIL/uL (4.00-5.50); RED CELL DISTRIBUTION WIDTH 12.9 % (11.0-15.5); WHITE BLOOD COUNT (AUTO) 5.9 K/uL (4.8-10.8)
[2020-09-16] MEDS ORDERED: DIATR MEGLU/DIATRIZOATE SODIUM 30 ML BOTTLE ONE (06:13)
[2020-09-16 06:30] LABS: BILIRUBIN,TOTAL 0.4 mg/dL (0.2-1.0); MAGNESIUM 2.8 mg/dL (1.80-2.40); POTASSIUM 3.7 mmol/L (3.5-5.1); TOTAL PROTEIN, SERUM 7.4 g/dL (6.0-8.3)
[2020-09-16] MEDS: LOSARTAN 100 MG TABLET PO SCH (09:00)
[2020-09-16] MEDS: HYDROCHLOROTHIAZIDE 25 MG TABLET PO SCH (09:00)
[2020-09-16] MEDS: THIAMINE HCL 100 MG/ML 2ML VIAL IVP SCH (10:33)
[2020-09-16] MEDS: METOCLOPRAMIDE 10 MG/2 ML VIAL IVP SCH (10:33)
[2020-09-16] MEDS: FAMOTIDINE 20MG VIAL IV SCH (10:33)
[2020-09-16] MEDS: ENOXAPARIN SODIUM 40 MG/0.4 ML SYRINGE SQ SCH (10:35)
[2020-09-16] MEDS: 0.9%NACL 1000ML 1,000 ML IV SCH (15:42)
[2020-09-17] MEDS: CEFAZOLIN SODIUM 1 GM VIAL IVP SCH ×2 (00:52→15:33)
[2020-09-17] MEDS: METOPROLOL TARTRATE 50 MG TAB PO SCH ×2 (00:52→22:16)
[2020-09-17] MEDS: 0.9%NACL 1000ML 1,000 ML IV SCH (02:10)
[2020-09-17 03:40] VITALS: BP 165/73
[2020-09-17 05:43] LABS: EOSINOPHILS % (AUTO) 2.9 % (0.0-8.0); HEMATOCRIT 33.8 % (36-48); LYMPHOCYTES % (AUTO) 20.1 % (21.0-51.0); MEAN CORPUSCULAR HEMOGLOBIN 25.3 pg (27.0-33.0); MEAN CORPUSCULAR HGB CONC 30.8 g/dL (32.0-36.0); MEAN CORPUSCULAR VOLUME 82.2 fL (79-99); MONOCYTES % (AUTO) 15.4 % (3.0-13.0); NEUTROPHILS % (AUTO) 59.3 % (40.0-77.0); PLATELET COUNT (AUTO) 338 K/uL (130-400); RED BLOOD CELL COUNT(AUTO) 4.11 MIL/uL (4.00-5.50); RED CELL DISTRIBUTION WIDTH 12.5 % (11.0-15.5); WHITE BLOOD COUNT (AUTO) 6.1 K/uL (4.8-10.8)
[2020-09-17 05:54] LABS: ALBUMIN 2.9 g/dL (3.5-5.0); BILIRUBIN,TOTAL 0.4 mg/dL (0.2-1.0); CREATININE 1.6 mg/dL (0.5-1.5); POTASSIUM 3.4 mmol/L (3.5-5.1); TOTAL PROTEIN, SERUM 7.3 g/dL (6.0-8.3)
[2020-09-17] MEDS: METOCLOPRAMIDE 10 MG/2 ML VIAL IVP SCH ×4 (07:00→22:16)
[2020-09-17 08:57] VITALS: BP 168/74
[2020-09-17] MEDS: LOSARTAN 100 MG TABLET PO SCH (09:00)
[2020-09-17] MEDS: DEXTROSE 5%-WATER 1,000 ML IV SCH ×4 (09:15→22:35)
[2020-09-17] MEDS ORDERED: ERYTHROMYCIN BASE 250 MG TABLET PO SCH (10:30)
[2020-09-17] MEDS: THIAMINE HCL 100 MG/ML 2ML VIAL IVP SCH (10:35)
[2020-09-17] MEDS: FAMOTIDINE 20MG VIAL IV SCH (10:36)
[2020-09-17] MEDS: ENOXAPARIN SODIUM 40 MG/0.4 ML SYRINGE SQ SCH (10:38)
[2020-09-17 13:58] VITALS: BP 172/85
[2020-09-17] MEDS: ERYTHROMYCIN BASE 250 MG TABLET PO SCH ×2 (15:29→22:15)
[2020-09-17 16:35] VITALS: BP 154/76
[2020-09-17 20:06] VITALS: BP 164/84
[2020-09-17] MEDS: POTASSIUM CHLORIDE 10% ELIXIR 20 MEQ/15 ML UDCUP PO PRN (22:15)
[2020-09-17] MEDS: DIPHENHYDRAMINE HCL 25 MG CAPSULE PO PRN (22:16)
[2020-09-18 00:04] VITALS: BP 168/78
[2020-09-18] MEDS: ONDANSETRON 4MG INJ IV PRN (00:05)
[2020-09-18] MEDS: CEFAZOLIN SODIUM 1 GM VIAL IVP SCH ×3 (00:05→23:31)
[2020-09-18] MEDS ORDERED: PROMETHAZINE HCL 25 MG/ML 1ML AMPULE IM ONE (02:00)
[2020-09-18] MEDS: ERYTHROMYCIN BASE 250 MG TABLET PO SCH ×3 (03:00→17:00)
[2020-09-18 03:57] VITALS: BP 143/70
[2020-09-18 05:08] LABS: BASOPHILS % (AUTO) 0.6 % (0.0-5.0); EOSINOPHILS % (AUTO) 0.8 % (0.0-8.0); LYMPHOCYTES % (AUTO) 18.1 % (21.0-51.0); MEAN CORPUSCULAR HEMOGLOBIN 25.5 pg (27.0-33.0); MEAN CORPUSCULAR VOLUME 82.3 fL (79-99); MONOCYTES % (AUTO) 13.5 % (3.0-13.0); NEUTROPHILS % (AUTO) 65.3 % (40.0-77.0); PLATELET COUNT (AUTO) 467 K/uL (130-400); RED BLOOD CELL COUNT(AUTO) 4.98 MIL/uL (4.00-5.50); RED CELL DISTRIBUTION WIDTH 12.6 % (11.0-15.5); WHITE BLOOD COUNT (AUTO) 10.3 K/uL (4.8-10.8)
[2020-09-18 05:12] LABS: CREATININE 1.7 mg/dL (0.5-1.5); MAGNESIUM 2.3 mg/dL (1.80-2.40); PHOSPHORUS 4.1 mg/dL (2.5-4.9); POTASSIUM 3.3 mmol/L (3.5-5.1)
[2020-09-18] MEDS: LIDOCAINE HCL-MPF 1% 2ML VIAL IV PRN ×2 (05:35→06:37)
[2020-09-18] MEDS: POTASSIUM CHLORIDE 20MEQ/100ML 100 ML IV PRN (05:36)
[2020-09-18 07:00] VITALS: BP 145/70
[2020-09-18] MEDS: LOSARTAN 100 MG TABLET PO SCH (09:00)
[2020-09-18] MEDS ORDERED: ERYTHROMYCIN LACTOBIONATE 250 MG in 0.9%NACL 100ML 100 ML IV SCH ×3 (09:45→12:00)
[2020-09-18] MEDS: METOCLOPRAMIDE 10 MG/2 ML VIAL IVP SCH ×3 (11:20→17:31)
[2020-09-18] MEDS: THIAMINE HCL 100 MG/ML 2ML VIAL IVP SCH (11:21)
[2020-09-18] MEDS: FAMOTIDINE 20MG VIAL IV SCH (11:21)
[2020-09-18] MEDS: ENOXAPARIN SODIUM 40 MG/0.4 ML SYRINGE SQ SCH (11:23)
[2020-09-18 11:30] VITALS: BP 150/71
[2020-09-18] MEDS: DEXTROSE 5%-WATER 1,000 ML IV SCH ×3 (11:55→23:27)
[2020-09-18 16:10] VITALS: BP 140/58
[2020-09-18 19:56] VITALS: BP 140/63
[2020-09-18] MEDS: METOPROLOL TARTRATE 50 MG TAB PO SCH (21:00)
[2020-09-18] MEDS ORDERED: M.V.I. IV [ADULT] 10 ML in CLINIMIX-E4.25%AA/D5+LYT2000ML 2,000 ML IV ONE (22:00)
[2020-09-18] MEDS: FAT EMULSIONS 20% 250ML 250 ML IV SCH (22:00)
[2020-09-18] MEDS: [UNRECOGNIZED DRUG - OTHER] IV SCH (22:21)
[2020-09-18] MEDS: ERYTHROMYCIN LACTOBIONATE IV SCH (22:21)
[2020-09-18] MEDS: DIPHENHYDRAMINE HCL 25 MG CAPSULE PO PRN (23:31)
[2020-09-19] VITALS (7 sets, daily range): BP systolic 122–151; BP diastolic 61–78
[2020-09-19] MEDS: DEXTROSE 5%-WATER 1,000 ML IV SCH ×4 (02:16→21:05)
[2020-09-19 05:02] LABS: BASOPHILS % (AUTO) 0.9 % (0.0-5.0); EOSINOPHILS % (AUTO) 5.1 % (0.0-8.0); HEMATOCRIT 32.2 % (36-48); LYMPHOCYTES % (AUTO) 28.8 % (21.0-51.0); MEAN CORPUSCULAR HEMOGLOBIN 25.8 pg (27.0-33.0); MEAN CORPUSCULAR VOLUME 80.7 fL (79-99); MONOCYTES % (AUTO) 11.8 % (3.0-13.0); NEUTROPHILS % (AUTO) 51.2 % (40.0-77.0); PLATELET COUNT (AUTO) 321 K/uL (130-400); RED BLOOD CELL COUNT(AUTO) 3.99 MIL/uL (4.00-5.50); RED CELL DISTRIBUTION WIDTH 12.5 % (11.0-15.5); WHITE BLOOD COUNT (AUTO) 7.7 K/uL (4.8-10.8)
[2020-09-19 05:20] LABS: MAGNESIUM 1.9 mg/dL (1.80-2.40)
[2020-09-19 05:24] LABS: POTASSIUM 2.7 mmol/L (3.5-5.1)
[2020-09-19] MEDS: LIDOCAINE HCL-MPF 1% 2ML VIAL IV PRN (05:46)
[2020-09-19] MEDS: HYDROXYZINE 25 MG TABLET PO PRN ×2 (05:46→20:44)
[2020-09-19] MEDS: POTASSIUM CHLORIDE 20MEQ/100ML 100 ML IV PRN ×2 (05:47→13:07)
[2020-09-19] MEDS: FAMOTIDINE 20MG VIAL IV SCH (08:51)
[2020-09-19] MEDS: THIAMINE HCL 100 MG/ML 2ML VIAL IVP SCH (08:51)
[2020-09-19] MEDS: LOSARTAN 100 MG TABLET PO SCH (08:51)
[2020-09-19] MEDS: METOCLOPRAMIDE 10 MG/2 ML VIAL IVP SCH ×3 (08:51→20:44)
[2020-09-19] MEDS: ENOXAPARIN SODIUM 40 MG/0.4 ML SYRINGE SQ SCH (08:52)
[2020-09-19] MEDS ORDERED: COMPOUND IV MISC 1 EACH IVSOLN MISC PRN (12:00)
[2020-09-19] MEDS: CEFAZOLIN SODIUM 1 GM VIAL IVP SCH (12:45)
[2020-09-19] MEDS: MAGNESIUM 2GM PREMIX 50ML 50 ML IV PRN (13:15)
[2020-09-19] MEDS: METOPROLOL TARTRATE 50 MG TAB PO SCH (20:44)
[2020-09-19] MEDS: POTASSIUM CHLORIDE 10% ELIXIR 20 MEQ/15 ML UDCUP PO PRN (20:45)
[2020-09-19] MEDS: [UNRECOGNIZED DRUG - OTHER] IV SCH ×3 (21:06)
[2020-09-19] MEDS: ERYTHROMYCIN LACTOBIONATE IV SCH ×3 (21:06)
[2020-09-20] MEDS: ERYTHROMYCIN LACTOBIONATE IV SCH ×3 (00:31→11:09)
[2020-09-20] MEDS: [UNRECOGNIZED DRUG - OTHER] IV SCH ×3 (00:31→11:09)
[2020-09-20] MEDS: CEFAZOLIN SODIUM 1 GM VIAL IVP SCH ×3 (00:31→22:51)
[2020-09-20] MEDS: DEXTROSE 5%-WATER 1,000 ML IV SCH ×3 (00:36→17:15)
[2020-09-20 03:42] VITALS: BP 125/50
[2020-09-20] MEDS: METOCLOPRAMIDE 10 MG/2 ML VIAL IVP SCH ×3 (05:52→17:00)
[2020-09-20 08:33] VITALS: BP 107/59
[2020-09-20] MEDS: FAMOTIDINE 20MG VIAL IV SCH (09:33)
[2020-09-20] MEDS: THIAMINE HCL 100 MG/ML 2ML VIAL IVP SCH (09:33)
[2020-09-20] MEDS: ENOXAPARIN SODIUM 40 MG/0.4 ML SYRINGE SQ SCH (09:34)
[2020-09-20] MEDS: FAT EMULSIONS 20% 250ML 250 ML IV SCH (10:00)
[2020-09-20] MEDS: HYDROCHLOROTHIAZIDE 25 MG TABLET PO SCH (11:08)
[2020-09-20] MEDS: LOSARTAN 100 MG TABLET PO SCH (11:08)
[2020-09-20 13:54] VITALS: BP 107/50
[2020-09-20] MEDS ORDERED: KCL 20 MEQ ERTAB PO SCH ×2 (14:45→16:40)
[2020-09-20] MEDS ORDERED: PANT40TA PO (14:52)
[2020-09-20] MEDS: KCL 20 MEQ ERTAB PO PRN ×2 (14:56→20:27)
[2020-09-20 16:43] VITALS: BP 121/52
[2020-09-20 17:39] LABS: CREATININE 3.2 mg/dL (0.5-1.5)
[2020-09-20 20:24] VITALS: BP 131/65
[2020-09-20] MEDS: METOPROLOL TARTRATE 50 MG TAB PO SCH (20:27)
[2020-09-20] MEDS: DIPHENHYDRAMINE HCL 25 MG CAPSULE PO PRN (22:51)
[2020-09-21 00:28] VITALS: BP 113/62
[2020-09-21] MEDS: DEXTROSE 5%-WATER 1,000 ML IV SCH ×2 (04:23→05:35)
[2020-09-21 04:28] VITALS: BP 131/66
[2020-09-21 05:44] LABS: HEMATOCRIT 33.1 % (36-48); MEAN CORPUSCULAR HEMOGLOBIN 25.7 pg (27.0-33.0); MEAN CORPUSCULAR HGB CONC 32.3 g/dL (32.0-36.0); MEAN CORPUSCULAR VOLUME 79.4 fL (79-99); RED BLOOD CELL COUNT(AUTO) 4.17 MIL/uL (4.00-5.50); RED CELL DISTRIBUTION WIDTH 12.7 % (11.0-15.5); WHITE BLOOD COUNT (AUTO) 10.9 K/uL (4.8-10.8)
[2020-09-21 05:52] LABS: CREATININE 2.9 mg/dL (0.5-1.5); POTASSIUM 3.9 mmol/L (3.5-5.1)
[2020-09-21] MEDS: METOCLOPRAMIDE 10 MG/2 ML VIAL IVP SCH ×2 (06:34→11:30)
[2020-09-21] MEDS: ENOXAPARIN SODIUM 40 MG/0.4 ML SYRINGE SQ SCH (09:00)
[2020-09-21] MEDS: HYDROCHLOROTHIAZIDE 25 MG TABLET PO SCH (09:28)
[2020-09-21] MEDS: FAMOTIDINE 20MG VIAL IV SCH (09:28)
[2020-09-21] MEDS: THIAMINE HCL 100 MG/ML 2ML VIAL IVP SCH (09:28)
[2020-09-21] MEDS: LOSARTAN 100 MG TABLET PO SCH (09:28)
[2020-09-21] MEDS: CEFAZOLIN SODIUM 1 GM VIAL IVP SCH (12:00)
== END 2020-09-21 13:00 | disposition home or self-care (01) | DRG 336 ==
LOC: EDH 15:37 → EDHIP 20:39 → 3CH 22:30
PROVIDERS: ADMIT Family Medicine; ATTEND Family Medicine
PROC: 0D9670Z Drainage of Stomach with Drainage Device, Via Natural or Artificial Opening (ICD-10-PCS; 2020-09-10)
PROC: 0DN80ZZ Release Small Intestine, Open Approach (ICD-10-PCS; principal; 2020-09-12 15:21)
DX: K56.609 Unspecified intestinal obstruction, unspecified as to partial versus complete obstruction (principal); N17.9 Acute kidney failure, unspecified; E87.0 Hyperosmolality and hypernatremia; E86.0 Dehydration; E87.6 Hypokalemia; R53.81 Other malaise; D64.9 Anemia, unspecified; N18.9 Chronic kidney disease, unspecified; I12.9 Hypertensive chronic kidney disease with stage 1 through stage 4 chronic kidney disease, or unspecified chronic kidney disease; K31.89 Other diseases of stomach and duodenum; K66.0 Peritoneal adhesions (postprocedural) (postinfection); K76.0 Fatty (change of) liver, not elsewhere classified; Z90.710 Acquired absence of both cervix and uterus; Z88.5 Allergy status to narcotic agent; Z91.010 Allergy to peanuts; Z90.49 Acquired absence of other specified parts of digestive tract; Z82.3 Family history of stroke; Z82.49 Family history of ischemic heart disease and other diseases of the circulatory system
CPT/HCPCS: 36415; 71045; 74018; 74176; 80048; 80053; 81001; 82550; 82570; 82948; 83605; 83690; 83735; 83880; 83935; 84100; 84132; 84133; 84145; 84300; 84484; 85025; 85027; 85610; 85730; 93005; 99291; G0378; J0330; J0360; J0690; J1100; J1364; J1650; J1885; J2175; J2250; J2270; J2370; J2405; J2704; J2710; J2765; J3010; J3411; J3475; J3480; J3490; J7030; J7070; J7120; Q0163; Q9963; Q9967

== ENCOUNTER → 2021-08-09 | Outpatient (CLI) | payer MEDICARE ==
[~2021-08-09] MED LIST: ACET1TAB25 PO; CLOP75TA14 PO; LOSA1TAB42 PO; METO50TA18 PO; PANT40TA PO
== END | disposition home or self-care (01) ==
LOC: RAH 14:51
PROVIDERS: ATTEND Family Medicine
DX: Z12.31 Encounter for screening mammogram for malignant neoplasm of breast (principal)
CPT/HCPCS: 77067

== ENCOUNTER → 2022-11-08 | Outpatient (CLI) | payer MEDICARE ==
[~2022-11-08] MED LIST changes: +ACET-2079 PO; -ACET1TAB25 PO; +CLOP-31 PO; -CLOP75TA14 PO
== END | disposition home or self-care (01) ==
LOC: RAH 12:19
PROVIDERS: ATTEND Family Medicine
DX: H92.02 Otalgia, left ear (principal)
CPT/HCPCS: 70450

== ENCOUNTER → 2023-03-06 | Outpatient (CLI) | payer MEDICARE | END | disposition home or self-care (01) | LOC: RAH 08:09 | PROVIDERS: ATTEND Internal Medicine | DX: R10.13 Epigastric pain (principal); K21.00 Gastro-esophageal reflux disease with esophagitis, without bleeding; K44.9 Diaphragmatic hernia without obstruction or gangrene; K57.10 Diverticulosis of small intestine without perforation or abscess without bleeding | CPT/HCPCS: 74240 ==

== ENCOUNTER → 2023-07-25 | Outpatient (CLI) | payer MEDICARE | END | disposition home or self-care (01) | LOC: RAH 11:32 | PROVIDERS: ATTEND Internal Medicine Gastroenterology | DX: R10.13 Epigastric pain (principal); R10.84 Generalized abdominal pain | CPT/HCPCS: 78264; A9541 ==

== ENCOUNTER → 2023-08-01 | Outpatient (CLI) | payer MEDICARE | END | disposition home or self-care (01) | LOC: RAH 09:09 | PROVIDERS: ATTEND Internal Medicine Gastroenterology | DX: K44.9 Diaphragmatic hernia without obstruction or gangrene (principal); K57.30 Diverticulosis of large intestine without perforation or abscess without bleeding; R10.10 Upper abdominal pain, unspecified | CPT/HCPCS: 74240 ==

== ENCOUNTER 2023-08-11 15:42 | Emergency (ER) | payer MEDICARE ==
[~2023-08-11] VITALS: Ht 157.5 cm; Wt 58.5 kg
[2023-08-11 16:22] LABS: HEMATOCRIT 35.4 % (36-48); MEAN CORPUSCULAR HEMOGLOBIN 25.5 pg (27.0-33.0); MEAN CORPUSCULAR HGB CONC 32.5 g/dL (32.0-36.0); MEAN CORPUSCULAR VOLUME 78.5 fL (79-99); PLATELET COUNT (AUTO) 282 K/uL (130-400); RED BLOOD CELL COUNT(AUTO) 4.51 MIL/uL (4.00-5.50); RED CELL DISTRIBUTION WIDTH 13.5 % (11.0-15.5); WHITE BLOOD COUNT (AUTO) 8.8 K/uL (4.8-10.8)
[2023-08-11 16:33] LABS: CREATININE 1.8 mg/dL (0.5-1.5)
[2023-08-11 16:34] LABS: POTASSIUM 2.8 mmol/L (3.5-5.1)
[2023-08-11 16:38] LABS: BASOPHILS # (AUTO) 0.08 K/uL (0.00-0.20); BASOPHILS % (AUTO) 0.9 % (0.0-5.0); EOSINOPHILS # (AUTO) 0.17 K/uL (0.00-0.70); EOSINOPHILS % (AUTO) 1.9 % (0.0-8.0); IMMATURE GRANULOCYTE ABSOLUTE 0.03 K/uL (0-1); LYMPHOCYTES # (AUTO) 2.1 K/uL (1.0-4.8); LYMPHOCYTES % (AUTO) 23.6 % (21.0-51.0); MONOCYTES # (AUTO) 0.7 K/uL (0.1-1.0); MONOCYTES % (AUTO) 8.3 % (3.0-13.0); NEUTROPHILS # (AUTO) 5.8 K/uL (1.8-7.7)
[2023-08-11] MEDS: FAMOTIDINE 20MG VIAL IV ONE (16:51)
[2023-08-11] MEDS: KETOROLAC 15MG/ML VIAL (15MG/ML) IV ONE (16:51)
[2023-08-11] MEDS: METOCLOPRAMIDE 10 MG/2 ML VIAL IVP ONE (16:52)
[2023-08-11] MEDS: 0.9%NACL 1000ML 501 ML IV ONE (16:52)
[2023-08-11 17:27] LABS: ALBUMIN 3.3 g/dL (3.5-5.0); BILIRUBIN,TOTAL 0.5 mg/dL (0.2-1.0); CREATININE 1.8 mg/dL (0.5-1.5); TOTAL PROTEIN, SERUM 7.6 g/dL (6.0-8.3)
[2023-08-11 17:30] LABS: POTASSIUM 2.9 mmol/L (3.5-5.1)
[2023-08-11] MEDS: POTASSIUM BICARB/CIT AC 25 MEQ TABLET.EFF PO ONE (17:55)
[2023-08-11 18:14] LABS: APPEARANCE,URINE CLEAR (CLEAR); BILIRUBIN,URINE NEGATIVE (NEGATIVE); COLOR,URINE LIGHT-YELLOW (YELLOW); GLUCOSE, URINE (UA) NEGATIVE (NEGATIVE); KETONES,URINE NEGATIVE (NEGATIVE); LEUKOCYTE ESTERASE ,URINE 25 Leu/uL (NEGATIVE); NITRATE,URINE NEGATIVE (NEGATIVE); OCCULT BLOOD,URINE NEGATIVE (NEGATIVE); PH,URINE 5.5 (5.0-8.0); PROTEIN,URINE 10 mg/dL (NEGATIVE); UROBILINOGEN,URINE 0.2 mg/dL (0.2-1.0)
[2023-08-11] MEDS ORDERED: DIATR MEGLU/DIATRIZOATE SODIUM 30 ML BOTTLE ONE (18:37)
[2023-08-11 18:50] LABS: ADD UA MICROSCOPIC YES
[2023-08-11 18:51] LABS: MUCUS,URINE RARE LPF (None Seen); OTHER CASTS, URINE 1 /LPF (None Seen); SQUAMOUS EPITHELIAL CELL,UR RARE /HPF (0-2)
[2023-08-11] MEDS ORDERED: IOHEXOL-350 75 ML VIAL IV ONE (19:59)
[2023-08-11] MEDS ORDERED: ONDA-104 PO (22:21)
[2023-08-11] MEDS ORDERED: DICY20TA2 PO (22:21)
[2023-08-11 22:22] VITALS: BP 159/74; PULSE 80; RESP 16; O2SAT 97
== END 2023-08-11 23:30 | disposition home or self-care (01) ==
LOC: EDH 15:42
DX: K52.9 Noninfective gastroenteritis and colitis, unspecified (principal); I10 Essential (primary) hypertension; Z90.49 Acquired absence of other specified parts of digestive tract; Z90.710 Acquired absence of both cervix and uterus; Z98.890 Other specified postprocedural states; Z88.5 Allergy status to narcotic agent; Z91.010 Allergy to peanuts
CPT/HCPCS: 99285; 74177; 96374; 71045; 96375; 96361; 82550; 84484; 80053; 83690 ×2; 85025; 87088; 83605; 81001; 36415; 93005; 80048; Q9963; J3490; J7030; J2765; J1885; Q9967